=== PATIENT | male | born 2000 | race Caucasian/White ===

== ENCOUNTER 2018-02-28 16:52 | Emergency (ER) | payer OTHER ==
[2018-02-28] MEDS ORDERED: Rabies Vaccine Human 2.5 UNITS VIAL ONE (17:41)
== END 2018-02-28 18:15 | disposition home or self-care (01) ==
LOC: SCSER 16:52
DX: S61.250A Open bite of right index finger without damage to nail, initial encounter (principal); F17.210 Nicotine dependence, cigarettes, uncomplicated; Z79.899 Other long term (current) drug therapy; W53.21XA Bitten by squirrel, initial encounter
CPT/HCPCS: 90375; 90471; 90675; 96372